=== PATIENT | female | born 1985 | race Two or more races ===

== ENCOUNTER 2017-10-19 08:07 | Day surgery (SDC) | payer OTHER ==
[~2017-10-19 08:07] MED LIST: BUPIVACAINE HCL/PF 0.5% (5MG/ML) 10 ML VIAL IJ ONE
[2017-10-19 08:17] VITALS: BMI 34.6
[2017-10-19] MEDS ORDERED: morphine CARPU-JECT 2 MG/1 ML DISP.SYRIN SQ ONE (09:01)
[2017-10-19] MEDS ORDERED: MORPHINE SULFATE 10 MG/1 ML *VIAL ONE ×2 (09:10→15:01)
--- NOTE | 2017-10-19 09:48 | PDOC ---
History of Present Illness - General Chief Complaint: Pain, Acute Stated Complaint: PAIN, NAUSEA Time Seen by Provider: 10/19/17 08:24 History Source: Patient Exam Limitations: No Limitations - History of Present Illness Travel History: No Initial Comments: 10/19/17 09:35 31-year-old female with no past medical history presents the ED with worsening umbilical pain over the past 24 hours. Patient states awoke yesterday morning at around 7 AM with worsening pain to her umbilical region which she describes a burning sharp pressure. Patient states of the day went on pain continued and has worsened since last night. Patient took no medication for the above and decided come to the ER since she was told she had an umbilical hernia about 4 years ago and after delivering her child in June 2017 the hernia enlarged and has been more tender. Patient was not given surgical consultation referral from her PCP Dr. Zhen Sosa. Patient denies fever, chills, change in bowel pattern, change in urine pattern, or abdominal distention. Patient does complain of mild nausea since this a.m. secondary to discomfort. Timing/Duration: reports: getting worse Quality: reports: moderate, fullness Abdominal Pain Onset Location: reports: periumbilical Pain Radiation: reports: no radiation Activities at Onset: reports: none Aggravating Factors: improves with: Movement Alleviating Factors: improves with: Rest Past History - Travel Traveled outside of the country in the last 30 days: No - Past Medical History Allergies/Adverse Reactions: Allergies Allergy/AdvReac Type Severity Reaction Status Date / Time No Known Allergies Allergy Verified 10/19/17 08:14 Home Medications: Ambulatory Orders Cholecalciferol (Vitamin D3) [Vitamin D -] 400 unit PO ONCE 10/19/17 Asthma: No Cancer: No Cardiac Disorders: No COPD: No Diabetes: No HTN: No Seizures: No Thyroid Disease: No - Immunization History Immunization Up to Date: Yes - Suicide/Smoking/Psychosocial Hx Smoking Status: No Smoking History: Never smoked Have you smoked in the past 12 months: No Number of Cigarettes Smoked Daily: 0 Hx Alcohol Use: No Drug/Substance Use Hx: No Hx Substance Use Treatment: No Patient Lives Alone: No Lives with/in: spouse/SO Review of Systems - Review of Systems Able to Perform ROS?: Yes Constitutional: No: Symptoms Reported HEENTM: No: Symptoms Reported Respiratory: No: Symptoms reported Cardiac (ROS): No: Symptoms Reported ABD/GI: No: Symptoms Reported Integumentary: Yes: Lumps Neurological: No: Symptoms reported Endocrine: No: Symptoms Reported Hematologic/Lymphatic: No: Symptoms Reported *Physical Exam - Vital Signs Last Vital Signs Temp Pulse Resp BP Pulse Ox 97.8 F 93 H 20 119/90 100 10/19/17 08:15 10/19/17 08:15 10/19/17 08:15 10/19/17 08:15 10/19/17 08:15 - Physical Exam General Appearance: Yes: Nourished, Appropriately Dressed. No: Apparent Distress HEENT: positive: Pharynx Normal. negative: Pale Conjunctivae Neck: positive: Supple Respiratory/Chest: positive: Lungs Clear, Normal Breath Sounds. negative: Respiratory Distress, Accessory Muscle Use Cardiovascular: positive: Regular Rhythm, Regular Rate. negative: Murmur Gastrointestinal/Abdominal: positive: Normal Bowel Sounds, Soft, Tenderness ( umbilical), Other (noted nonreducible tender 3cm raisedumbilical hernia without s/s of incarceration. Surrounding skin intact. ). negative: Distended Integumentary: positive: Normal Color, Warm, Moist Neurologic: positive: Motor Strength 5/5 (ambulatory) ED Treatment Course - LABORATORY CBC & Chemistry Diagram: 10/19/17 12:14 10/19/17 12:11 - ADDITIONAL ORDERS Additional order review: Laboratory Results 10/19/17 09:00 Urine HCG, Qual Negative - RADIOLOGY Radiology Studies Ordered: Category Date Time Status SOFT TISSUE ABDOMEN US [US] Stat Ultrasound 10/19/17 09:08 Ordered - Medications Given in the ED: ED Medications Discontinued Medications Generic Name Dose Route Start Last Admin Trade Name Tiffanie PRN Reason Stop Dose Admin Morphine Sulfate 4 mg 10/19/17 09:01 10/19/17 09:14 Morphine Injection - SQ 10/19/17 09:02 4 mg ONCE ONE Administration Medical Decision Making - Medical Decision Making 10/19/17 10:13 Patient here for evaluation of umbilical hernia which she has had for the past 4 years now causing her more discomfort over the past 2 days to the point that she is nauseous and unable to perform certain duties secondary to discomfort. Patient on exam had an non-reducible tenderness 3 cm umbilical hernia. Patient ordered morphine for pain urine and will perform an ultrasound of soft tissue to rule out incarceration. 10/19/17 11:[address] shows small hernia containing small bowel loop. No mention of fluid collection or abscess. Patient will continue with plan of care which includes lab work a lactic acid and abdominal CT with IV contrast. 10/19/17 15:01 Laboratory Tests 10/19/17 10/19/17 10/19/17 12:08 12:11 12:14 WBC 6.5 Hgb 12.6 Hct 39.0 Neutrophils % 57.3 Sodium 141 Potassium 4.3 Chloride 105 Carbon Dioxide 28 Anion Gap 8 BUN 5 L Creatinine 0.5 L Random Glucose 94 Lactic Acid 0.7 Alkaline Phosphatase 124 H 10/19/17 15:[address] shows fat-containing umbilical hernia with inflammatory stranding suggestive of incarceration. No bowel is contained within the hernia sac. Patient ordered for 4 morphine via IV along with consultation to surgery Dr. Carrero. 10/19/17 16:05 Dr. Carrero here for consultation will take patient to the ER within the hour. Microblog sent to hospitalist for admission *DC/Admit/Observation/Transfer Diagnosis at time of Disposition: Umbilical hernia Qualifiers: Obstruction and gangrene presence: with obstruction but without gangrene Qualified Code(s): K42.0 - Umbilical hernia with obstruction, without gangrene - Discharge Dispostion Admit: Yes - Referrals Referrals: Stormy Fontaine [Primary Care Provider] - - Patient Instructions - Post Discharge Activity
[2017-10-19 12:22] LABS: EOS % 2.2 % (0-4.5); HEMOGLOBIN 12.6 GM/dL (10.7-15.3); LYMPH % 31.5 % (8-40); MCH 26.7 pg (25.7-33.7); MCHC 32.4 g/dl (32.0-36.0); MEAN CELL VOLUME 82.4 fl (80-96); MEAN PLT VOLUME 7.4 fl (7.5-11.1); NEUT % 57.3 % (42.8-82.8); PLATELET COUNT 242 K/MM3 (134-434); RBC 4.73 M/mm3 (3.60-5.2); RDW 13.9 % (11.6-15.6); WHITE BLOOD COUNT 6.5 K/mm3 (4.0-10.0)
--- NOTE | 2017-10-19 12:27 | PDOC ---
*Physical Exam - Vital Signs Last Vital Signs Temp Pulse Resp BP Pulse Ox 98.3 F 68 20 100/60 99 10/19/17 11:01 10/19/17 11:01 10/19/17 11:01 10/19/17 11:01 10/19/17 11:01 ED Treatment Course - LABORATORY CBC & Chemistry Diagram: 10/19/17 12:14 10/19/17 12:11 - ADDITIONAL ORDERS Additional order review: Laboratory Results 10/19/17 09:00 Urine HCG, Qual Negative 10/19/17 12:14 RBC 4.73 MCV 82.4 MCHC 32.4 RDW 13.9 D MPV 7.4 L Neutrophils % 57.3 Lymphocytes % 31.5 D Monocytes % 8.0 Eosinophils % 2.2 Basophils % 1.0 - Medications Given in the ED: ED Medications Discontinued Medications Generic Name Dose Route Start Last Admin Trade Name Freq PRN Reason Stop Dose Admin Morphine Sulfate 4 mg 10/19/17 09:01 10/19/17 09:14 Morphine Injection - SQ 10/19/17 09:02 4 mg ONCE ONE Administration Medical Decision Making - Medical Decision Making 10/19/17 12:25 Patient seen and evaluated with the nurse practitioner. I agree with the overall evaluation, assessment, and management with the following summary of visit: 31-year-old female with long-standing history of umbilical hernia now with persistent swelling and intractable pain. Vital signs as noted. Nonreducible umbilical hernia Nonreducible umbilical hernia, rule out obstruction/incarceration versus strain urination. Labs, urinalysis CT of the abdomen and pelvis Pain control Reassess *DC/Admit/Observation/Transfer Diagnosis at time of Disposition: Umbilical hernia Qualifiers: Obstruction and gangrene presence: with obstruction but without gangrene Qualified Code(s): K42.0 - Umbilical hernia with obstruction, without gangrene - Referrals Referrals: Stormy Fontaine [Primary Care Provider] - - Patient Instructions - Post Discharge Activity
[2017-10-19 12:44] LABS: ALBUMIN 3.5 g/dl (3.4-5.0); ANION GAP 8 (8-16); BILIRUBIN,TOTAL 0.4 mg/dL (0.2-1.0); BLOOD UREA NITROGEN 5 mg/dL (7-18); CALCIUM 8.7 mg/dL (8.5-10.1); CHLORIDE 105 mmol/L (98-107); CO2 28 mmol/L (21-32); CREATININE 0.5 mg/dL (0.55-1.02); GLUCOSE,RANDOM 94 mg/dL (74-106); POTASSIUM 4.3 mmol/L (3.5-5.1); SGOT/AST 20 U/L (15-37); SGPT/ALT 39 U/L (12-78); SODIUM 141 mmol/L (136-145); TOT PROT 7.1 g/dl (6.4-8.2)
[2017-10-19 12:45] LABS: ALK PHOS 124 U/L (45-117)
[2017-10-19] MEDS ORDERED: morphine CARPU-JECT 2 MG/1 ML DISP.SYRIN IVPUSH ONE (15:02)
[2017-10-19] MEDS ORDERED: IBUPROFEN 800 MG/8 ML IJ IVPB PRN (16:30)
[2017-10-19] MEDS ORDERED: ONDANSETRON 4 MG/2 ML VIAL IVPUSH PRN ×2 (16:30→19:04)
[2017-10-19] MEDS ORDERED: LACTATED RINGERS SOLUTION 1,000 ML IV SCH (16:30)
[2017-10-19] MEDS ORDERED: MIDAZOLAM HCL 2 MG/2 ML SINGLE DOSE VIAL ONE (16:38)
[2017-10-19] MEDS ORDERED: PROPOFOL 20 ML ONE ×2 (16:39)
[2017-10-19] MEDS ORDERED: SUCCINYLCHOLINE CHLORIDE 200 MG/10 ML VIAL ONE (16:39)
[2017-10-19] MEDS ORDERED: ROCURONIUM BROMIDE 50 MG/5 ML VIAL ONE (16:39)
[2017-10-19] MEDS ORDERED: NEOSTIGMINE METHYLSULFATE 0.5 MG/ML - 10 ML MDV ONE (16:40)
--- NOTE | 2017-10-19 16:46 | HP ---
CHIEF COMPLAINT: PCP: HISTORY OF PRESENT ILLNESS: ER course was notable for: (1) (2) (3) Recent Travel: PAST MEDICAL HISTORY: PAST SURGICAL HISTORY: Social History: Smoking: Alcohol: Drugs: Family History: Allergies No Known Allergies Allergy (Verified 10/19/17 08:14) HOME MEDICATIONS: Home Medications Medication Instructions Recorded Cholecalciferol (Vitamin D3) 400 unit PO ONCE 10/19/17 [Vitamin D -] REVIEW OF SYSTEMS CONSTITUTIONAL: Absent: fever, chills, diaphoresis, generalized weakness, malaise, loss of appetite, weight change HEENT: Absent: rhinorrhea, nasal congestion, throat pain, throat swelling, difficulty swallowing, mouth swelling, ear pain, eye pain, visual changes CARDIOVASCULAR: Absent: chest pain, syncope, palpitations, irregular heart rate, lightheadedness , peripheral edema RESPIRATORY: Absent: cough, shortness of breath, dyspnea with exertion, orthopnea, wheezing, stridor, hemoptysis GASTROINTESTINAL: Absent: abdominal pain, abdominal distension, nausea, vomiting, diarrhea, constipation, melena, hematochezia GENITOURINARY: Absent: dysuria, frequency, urgency, hesitancy, hematuria, flank pain, genital pain MUSCULOSKELETAL: Absent: myalgia, arthralgia, joint swelling, back pain, neck pain SKIN: Absent: rash, itching, pallor HEMATOLOGIC/IMMUNOLOGIC: Absent: easy bleeding, easy bruising, lymphadenopathy, frequent infections ENDOCRINE: Absent: unexplained weight gain, unexplained weight loss, heat intolerance, cold intolerance NEUROLOGIC: Absent: headache, focal weakness or paresthesias, dizziness, unsteady gait, seizure, mental status changes, bladder or bowel incontinence PSYCHIATRIC: Absent: anxiety, depression, suicidal or homicidal ideation, hallucinations. PHYSICAL EXAMINATION Vital Signs - 24 hr 10/19/17 10/19/17 10/19/17 08:15 11:01 15:09 Temperature 97.8 F 98.3 F Pulse Rate 93 H Pulse Rate [ 68 72 Left Radial] Respiratory 20 20 18 Rate Blood Pressure 119/90 Blood Pressure 100/60 114/73 [Right Arm] O2 Sat by Pulse 100 99 100 Oximetry (%) 10/19/17 16:32 Temperature 98.3 F Pulse Rate Pulse Rate [ 70 Left Radial] Respiratory 18 Rate Blood Pressure Blood Pressure 110/60 [Right Arm] O2 Sat by Pulse 99 Oximetry (%) GENERAL: Awake, alert, and fully oriented, in no acute distress. HEAD: Normal with no signs of trauma. EYES: Pupils equal, round and reactive to light, extraocular movements intact, sclera anicteric, conjunctiva clear. No lid lag. EARS, NOSE, THROAT: Ears normal, nares patent, oropharynx clear without exudates. Moist mucous membranes. NECK: Normal range of motion, supple without lymphadenopathy, JVD, or masses. LUNGS: Breath sounds equal, clear to auscultation bilaterally. No wheezes, and no crackles. No accessory muscle use. HEART: Regular rate and rhythm, normal S1 and S2 without murmur, rub or gallop. ABDOMEN: Soft, nontender, not distended, normoactive bowel sounds, no guarding, no rebound, no masses. No hepatomegaly or splenomegaly. MUSCULOSKELETAL: Normal range of motion at all joints. No bony deformities or tenderness. No CVA tenderness. UPPER EXTREMITIES: 2+ pulses, warm, well-perfused. No cyanosis. No clubbing. No peripheral edema. LOWER EXTREMITIES: 2+ pulses, warm, well-perfused. No calf tenderness. No peripheral edema. NEUROLOGICAL: Cranial nerves II-XII intact. Normal speech. Normal gait. PSYCHIATRIC: Cooperative. Good eye contact. Appropriate mood and affect. SKIN: Warm, dry, normal turgor, no rashes or lesions noted, normal capillary refill. Laboratory Results - last 24 hr 10/19/17 10/19/17 10/19/17 09:00 12:08 12:11 WBC RBC Hgb Hct MCV MCH MCHC RDW Plt Count MPV Neutrophils % Lymphocytes % Monocytes % Eosinophils % Basophils % Sodium 141 Potassium 4.3 Chloride 105 Carbon Dioxide 28 Anion Gap 8 BUN 5 L Creatinine 0.5 L Creat Clearance w eGFR > 60 Random Glucose 94 Lactic Acid 0.7 Calcium 8.7 Total Bilirubin 0.4 AST 20 ALT 39 Alkaline Phosphatase 124 H Total Protein 7.1 Albumin 3.5 Urine HCG, Qual Negative 10/19/17 12:14 WBC 6.5 RBC 4.73 Hgb 12.6 Hct 39.0 MCV 82.4 MCH 26.7 MCHC 32.4 RDW 13.9 D Plt Count 242 D MPV 7.4 L Neutrophils % 57.3 Lymphocytes % 31.5 D Monocytes % 8.0 Eosinophils % 2.2 Basophils % 1.0 Sodium Potassium Chloride Carbon Dioxide Anion Gap BUN Creatinine Creat Clearance w eGFR Random Glucose Lactic Acid Calcium Total Bilirubin AST ALT Alkaline Phosphatase Total Protein Albumin Urine HCG, Qual ASSESSMENT/PLAN:
[2017-10-19] MEDS ORDERED: DEXAMETHASONE SOD PHOSPHATE 4 MG/1 ML VIAL ONE (16:48)
[2017-10-19] MEDS ORDERED: LIDOCAINE HCL/PF 2% SDV 5ML VIAL ONE (16:48)
--- NOTE | 2017-10-19 16:54 | CONSULT ---
- Consultation REQUESTING PROVIDER: Gay WAKEFIELD CONSULT REQUEST: We have been asked to surgically evaluate this patient for an incarcerated umbilical hernia PCP:Beatris Vargas HISTORY OF PRESENT ILLNESS:EMELIA who is a 31 y/o female w/a known umbilical hernia who presented w/pain and nausea and vomiting which she had not had before; she has NOC; the hernia is interfering w/ her ADL more now since the pain started; she came to the ER for evaluation. PMHx: none PSHx: C-S Home Medications Medication Instructions Recorded Cholecalciferol (Vitamin D3) 400 unit PO ONCE 10/19/17 [Vitamin D -] Allergies Allergy/AdvReac Type Severity Reaction Status Date / Time No Known Allergies Allergy Verified 10/19/17 08:14 REVIEW OF SYSTEMS: CONSTITUTIONAL: Absent: fever, chills, diaphoresis, generalized weakness, malaise, loss of appetite, weight change CARDIOVASCULAR: Absent: chest pain, syncope, palpitations, irregular heart rate, lightheadedness , peripheral edema RESPIRATORY: Absent: cough, shortness of breath, dyspnea with exertion, wheezing, stridor, hemoptysis GASTROINTESTINAL: Absent: abdominal pain, abdominal distension, nausea, vomiting, diarrhea, constipation, melena, hematochezia GENITOURINARY: Absent: dysuria, frequency, urgency, hesitancy, hematuria, flank pain, genital pain MUSCULOSKELETAL: Absent: myalgia, arthralgia, joint swelling, back pain, neck pain SKIN: Absent: rash, itching, pallor HEMATOLOGIC/IMMUNOLOGIC: Absent: easy bleeding, easy bruising, lymphadenopathy NEUROLOGIC: Absent: headache, focal weakness, paresthesias, dizziness, unsteady gait, seizure, mental status changes, bladder or bowel incontinence PSYCHIATRIC: Absent: anxiety, depression, suicidal or homicidal ideation, hallucinations. PHYSICAL EXAM: GENERAL: Awake, alert, and fully oriented, in no acute distress. HEAD: Normal with no signs of trauma. EYES, sclera anicteric, conjunctiva clear. NECK: Normal ROM, supple without lymphadenopathy, JVD, or masses. ABDOMEN: Soft, tender at umbilicus w/incarcerated umbilical hernia; skin is slightly erythematous, not distended, normoactive bowel sounds, voluntary guarding, no rebound, no other hernias. No organomegaly. MUSCULOSKELETAL: Normal ROM at all joints. No bony deformities or tenderness. No CVA tenderness. UPPER EXTREMITIES: 2+ pulses, warm, well-perfused. No cyanosis. Cap refill <2 seconds. No peripheral edema. LOWER EXTREMITIES: 2+ pulses, warm, well-perfused. No calf tenderness. No peripheral edema. NEUROLOGICAL: Normal speech, gait not observed. PSYCH: Cooperative. Good eye contact. Appropriate mood and affect. SKIN: Warm, dry, normal turgor, no rashes or lesions noted. Vital Signs Temperature 98.3 F 10/19/17 16:32 Pulse Rate 70 10/19/17 16:32 Respiratory Rate 18 10/19/17 16:32 Blood Pressure 110/60 10/19/17 16:32 O2 Sat by Pulse Oximetry (%) 99 10/19/17 16:32 Lab Results WBC 6.5 K/mm3 (4.0-10.0) 10/19/17 12:14 RBC 4.73 M/mm3 (3.60-5.2) 10/19/17 12:14 Hgb 12.6 GM/dL (10.7-15.3) 10/19/17 12:14 Hct 39.0 % (32.4-45.2) 10/19/17 12:14 MCV 82.4 fl (80-96) 10/19/17 12:14 MCHC 32.4 g/dl (32.0-36.0) 10/19/17 12:14 RDW 13.9 % (11.6-15.6) D 10/19/17 12:14 Plt Count 242 K/MM3 (134-434) D 10/19/17 12:14 Sodium 141 mmol/L (136-145) 10/19/17 12:11 Potassium 4.3 mmol/L (3.5-5.1) 10/19/17 12:11 Chloride 105 mmol/L (98-107) 10/19/17 12:11 Carbon Dioxide 28 mmol/L (21-32) 10/19/17 12:11 Anion Gap 8 (8-16) 10/19/17 12:11 BUN 5 mg/dL (7-18) L 10/19/17 12:11 Creatinine 0.5 mg/dL (0.55-1.02) L 10/19/17 12:11 Random Glucose 94 mg/dL (74-106) 10/19/17 12:11 Calcium 8.7 mg/dL (8.5-10.1) 10/19/17 12:11 CT a/p reviewed images and report IMP:incarcerated umbilical hernia PLAN: Repair incarcerated umbilical hernia repair; r/b/t/a's d/w the patient including possible recurrence; informed consent obtained. Miguel Carrero Md FACS Visit type - Case Type Case Type: ED Admission - Emergency Emergency Visit: Yes Care time: The patient presented to the Emergency Department on the above date and was hospitalized for further evaluation of their emergent condition. - New patient This patient is new to me today: Yes Date on this admission: 10/19/17 - Critical Care Critical Care patient: No
[2017-10-19] MEDS ORDERED: BUPIVACAINE HCL/PF 0.5% (5MG/ML) 10 ML VIAL ONE (16:55)
[2017-10-19 17:04] LABS: INR 1.07 (0.82-1.09); PROTHROMBIN TIME (PATIENT) 12.1 SEC (9.98-11.88)
[2017-10-19] MEDS ORDERED: GLYCOPYRROLATE 0.2 MG/1 ML VIAL ONE ×2 (17:24→18:29)
[2017-10-19] MEDS ORDERED: BUPIVACAINE HCL/PF 0.5% (5MG/ML) 10 ML VIAL IJ ONE ×2 (17:45)
[2017-10-19] MEDS: HYDROmorphone HCL CARPU-JECT 2 MG/1 ML DISP.SYRIN IVPUSH PRN ×4 (18:33→19:03)
[2017-10-19] MEDS ORDERED: HYDROmorphone HCL CARPU-JECT 2 MG/1 ML DISP.SYRIN ONE (18:34)
[2017-10-19] MEDS ORDERED: IBUPROFEN 800 MG/8 ML IJ IVPB ONE (18:35)
--- NOTE | 2017-10-19 18:36 | OP ---
Operative Note - Note: Operative Date: 10/19/17 Pre-Operative Diagnosis: incarcerated umbilical hernia Operation: repair incarcerated umbilical hernia Findings: incarcerated viable omentum; 1.5 cm. abdominal wall defect Post-Operative Diagnosis: Same as Pre-op Surgeon: Miguel Carrero Anesthesiologist/WELL TENDER: Kamila Jurado Anesthesia: General Specimens Removed: sac and omentum Estimated Blood Loss (mls): 5
[2017-10-19] MEDS ORDERED: ACETAMINOPHEN 325 MG TABLET (FP) PO PRN (18:42)
[2017-10-19] MEDS ORDERED: oxyCODONE HCL 5 MG TABLET PO PRN (18:42)
[2017-10-19] MEDS: IBUPROFEN 800 MG/8 ML IJ IVPB PRN (18:45)
--- NOTE | 2017-10-19 19:41 | PN ---
Teaching Attending Note Name of Resident: Homar Cordero ATTENDING PHYSICIAN STATEMENT I saw and evaluated the patient. I reviewed the resident's note and discussed the case with the resident. I agree with the resident's findings and plan as documented. SUBJECTIVE: 31 F with no Pmhx who presented with umbilical pain, found to have a incarcerated umbilical hernia for which she was taken to the OR. States she feels ok post-op. Denies any fevers, chills, chest pain or pressure, OBJECTIVE: Physical: VS: Vital Signs Period Temp Pulse Resp BP Sys/Pratt Pulse Ox Last 24 Hr 97.8 F-98.3 F 67-102 16-20 100-119/51-90 99-100 GEN: NAD, resting in bed, AA0X3 HEENT:NCAT, PERRL, throat without erythema or exudates CARD: RRR S1, S2 RESP: CTAB ABD: BSx4, NTD to palpation, Dry gauze in place EXT: -C/C/E CBCD WBC 6.5 K/mm3 (4.0-10.0) 10/19/17 12:14 RBC 4.73 M/mm3 (3.60-5.2) 10/19/17 12:14 Hgb 12.6 GM/dL (10.7-15.3) 10/19/17 12:14 Hct 39.0 % (32.4-45.2) 10/19/17 12:14 MCV 82.4 fl (80-96) 10/19/17 12:14 MCHC 32.4 g/dl (32.0-36.0) 10/19/17 12:14 RDW 13.9 % (11.6-15.6) D 10/19/17 12:14 Plt Count 242 K/MM3 (134-434) D 10/19/17 12:14 MPV 7.4 fl (7.5-11.1) L 10/19/17 12:14 CMP Sodium 141 mmol/L (136-145) 10/19/17 12:11 Potassium 4.3 mmol/L (3.5-5.1) 10/19/17 12:11 Chloride 105 mmol/L (98-107) 10/19/17 12:11 Carbon Dioxide 28 mmol/L (21-32) 10/19/17 12:11 Anion Gap 8 (8-16) 10/19/17 12:11 BUN 5 mg/dL (7-18) L 10/19/17 12:11 Creatinine 0.5 mg/dL (0.55-1.02) L 10/19/17 12:11 Creat Clearance w eGFR > 60 (>60) 10/19/17 12:11 Random Glucose 94 mg/dL (74-106) 10/19/17 12:11 Calcium 8.7 mg/dL (8.5-10.1) 10/19/17 12:11 Total Bilirubin 0.4 mg/dL (0.2-1.0) 10/19/17 12:11 AST 20 U/L (15-37) 10/19/17 12:11 ALT 39 U/L (12-78) 10/19/17 12:11 Alkaline Phosphatase 124 U/L (45-117) H 10/19/17 12:11 Total Protein 7.1 g/dl (6.4-8.2) 10/19/17 12:11 Albumin 3.5 g/dl (3.4-5.0) 10/19/17 12:11 ASSESSMENT AND PLAN: 31 F with no pmhx who presented with umbilical pain, found to have a incarcerated umbilical hernia 1.) Umbilical Hernia Repair- POD #0 - Pain Control - IVF - Incentive Spirometer - Repeat CBC, BMP in am - CLear Liquid Diet - 2.) [facility]
[2017-10-19] MEDS: LACTATED RINGERS SOLUTION 1,000 ML IV SCH (20:00)
--- NOTE | 2017-10-19 20:44 | HP ---
CHIEF COMPLAINT: abdominal pain PCP: Stormy Fontaine HISTORY OF PRESENT ILLNESS: Pt is a 31 y/o F with no significant PMH who presents with abdominal pain. She had a known hernia since 2017. Pt was taken to OR for incarcerated hernia. This history taken post-op. Pt slightly groggy from anesthesia, but easily rousable. Pt complains of mild discomfort at the surgical site. No other complaints. Pt states her pain began today and was accompanied by nausea but no vomiting, no bloody stool. No fever, chills, headache, cough. ER course was notable for: (1) labs unremarkable (2) CT showing hernia (3) Recent Travel: PAST MEDICAL HISTORY: denies PAST SURGICAL HISTORY: denies. Per hospital staff, pt had a recent Social History: Smoking: denies Alcohol: denies Drugs: denies Note that pt denies, but records reveal [facility] visit in the past. Family History: denies Allergies No Known Allergies Allergy (Verified 10/19/17 08:14) HOME MEDICATIONS: Home Medications Medication Instructions Recorded Cholecalciferol (Vitamin D3) 400 unit PO ONCE 10/19/17 [Vitamin D -] REVIEW OF SYSTEMS CONSTITUTIONAL: Absent: fever, chills, diaphoresis, generalized weakness HEENT: Absent: throat pain, difficulty swallowing, mouth swelling CARDIOVASCULAR: Absent: chest pain, lightheadedness RESPIRATORY: Absent: cough, shortness of breath GASTROINTESTINAL: abdominal pain , nausea Absent: , abdominal distension, vomiting, diarrhea, constipation, melena, hematochezia GENITOURINARY: Absent: dysuria, frequency, urgency MUSCULOSKELETAL: Absent: myalgia, arthralgia, joint swelling, back pain, neck pain SKIN: Absent: rash, itching, pallor HEMATOLOGIC/IMMUNOLOGIC: Absent: easy bleeding, easy bruising, lymphadenopathy, frequent infections NEUROLOGIC: Absent: headache, focal weakness or paresthesias, dizziness, unsteady gait, seizure, mental status changes, bladder or bowel incontinence PHYSICAL EXAMINATION Vital Signs - 24 hr 10/19/17 10/19/17 10/19/17 08:15 11:01 15:09 Temperature 97.8 F 98.3 F Pulse Rate 93 H Pulse Rate [ 68 72 Left Radial] Respiratory 20 20 18 Rate Blood Pressure 119/90 Blood Pressure 100/60 114/73 [Right Arm] O2 Sat by Pulse 100 99 100 Oximetry (%) 10/19/17 10/19/17 10/19/17 16:32 18:29 18:45 Temperature 98.3 F 98.3 F Pulse Rate 102 H 79 Pulse Rate [ 70 Left Radial] Respiratory 18 16 18 Rate Blood Pressure 117/62 110/51 Blood Pressure 110/60 [Right Arm] O2 Sat by Pulse 99 100 100 Oximetry (%) 10/19/17 10/19/17 10/19/17 19:00 19:15 19:30 Temperature Pulse Rate 69 67 68 Pulse Rate [ Left Radial] Respiratory 16 16 16 Rate Blood Pressure 105/55 108/54 106/63 Blood Pressure [Right Arm] O2 Sat by Pulse 100 100 100 Oximetry (%) GENERAL: Awake, alert, and fully oriented, in no acute distress. HEAD: Normal with no signs of trauma. EYES: Pupils equal, round and reactive to light, extraocular movements intact, sclera anicteric, conjunctiva clear. No lid lag. EARS, NOSE, THROAT: oropharynx clear without exudates. Moist mucous membranes. NECK: Normal range of motion, supple without lymphadenopathy, JVD, or masses. LUNGS: Breath sounds equal, clear to auscultation bilaterally. No wheezes, and no crackles. No accessory muscle use. HEART: Regular rate and rhythm, normal S1 and S2 without murmur, rub or gallop. ABDOMEN: Soft, tender at the surgical site and epigastrium with palpation, not distended, normoactive bowel sounds, no guarding, no rebound, no masses. No hepatomegaly or splenomegaly. MUSCULOSKELETAL: Normal range of motion at all joints. No bony deformities or tenderness. No CVA tenderness. UPPER EXTREMITIES: 2+ pulses, warm, well-perfused. No cyanosis. No clubbing. No peripheral edema. LOWER EXTREMITIES: 2+ pulses, warm, well-perfused. No calf tenderness. No peripheral edema. NEUROLOGICAL: Cranial nerves II-XII intact. Normal speech. Normal gait. PSYCHIATRIC: Cooperative. Good eye contact. Appropriate mood and affect. SKIN: Warm, dry, normal turgor, no rashes or lesions noted, normal capillary refill. Laboratory Results - last 24 hr 10/19/17 10/19/17 10/19/17 09:00 12:08 12:11 WBC RBC Hgb Hct MCV MCH MCHC RDW Plt Count MPV Neutrophils % Lymphocytes % Monocytes % Eosinophils % Basophils % PT with INR INR Sodium 141 Potassium 4.3 Chloride 105 Carbon Dioxide 28 Anion Gap 8 BUN 5 L Creatinine 0.5 L Creat Clearance w eGFR > 60 Random Glucose 94 Lactic Acid 0.7 Calcium 8.7 Total Bilirubin 0.4 AST 20 ALT 39 Alkaline Phosphatase 124 H Total Protein 7.1 Albumin 3.5 Urine HCG, Qual Negative Blood Type Antibody Screen 10/19/17 10/19/17 10/19/17 12:14 16:25 16:25 WBC 6.5 RBC 4.73 Hgb 12.6 Hct 39.0 MCV 82.4 MCH 26.7 MCHC 32.4 RDW 13.9 D Plt Count 242 D MPV 7.4 L Neutrophils % 57.3 Lymphocytes % 31.5 D Monocytes % 8.0 Eosinophils % 2.2 Basophils % 1.0 PT with INR 12.10 H INR 1.07 Sodium Potassium Chloride Carbon Dioxide Anion Gap BUN Creatinine Creat Clearance w eGFR Random Glucose Lactic Acid Calcium Total Bilirubin AST ALT Alkaline Phosphatase Total Protein Albumin Urine HCG, Qual Blood Type O POSITIVE Antibody Screen Negative ASSESSMENT/PLAN: Pt is a 31 y/o F POD 0 of open surgical repair of incarcerated umbilical hernia. #POD 0 surgical repair -pain control. Oxycodone, Ibuprofen, Tylenol -IVF -incentive spirometer #FEN -LR -lytes wnl -clear liquid diet #PPx -SCDs -Hep SubQ #Dispo -Admit to Med/Surg Billy Falcon MD PGY-1 IM Visit type - Emergency Visit Emergency Visit: Yes Care time: The patient presented to the Emergency Department on the above date and was hospitalized for further evaluation of their emergent condition. - New Patient This patient is new to me today: Yes Date on this admission: 10/19/17 - Critical Care Critical Care patient: No
[2017-10-19] MEDS: HEPARIN NA (PORCINE) 5,000 UNITS/ML 1ML VIAL SQ SCH (21:37)
[2017-10-19] MEDS: oxyCODONE HCL 5 MG TABLET PO PRN (21:38)
[2017-10-19] MEDS: ACETAMINOPHEN 325 MG TABLET (FP) PO PRN (21:39)
[2017-10-19] MEDS ORDERED: HEPARIN NA (PORCINE) 5,000 UNITS/ML 1ML VIAL SQ SCH (22:00)
[2017-10-20] MEDS ORDERED: IBUPROFEN 800 MG/8 ML IJ IVPB ONE (01:06)
[2017-10-20 01:43] VITALS: TEMP 98.3
[2017-10-20] MEDS: HEPARIN NA (PORCINE) 5,000 UNITS/ML 1ML VIAL SQ SCH (05:49)
[2017-10-20] MEDS: ACETAMINOPHEN 325 MG TABLET (FP) PO PRN ×2 (05:51→13:02)
[2017-10-20] MEDS: oxyCODONE HCL 5 MG TABLET PO PRN ×2 (05:51→13:03)
[2017-10-20] MEDS: LACTATED RINGERS SOLUTION 1,000 ML IV SCH (05:52)
--- NOTE | 2017-10-20 07:39 | PN ---
Physical Exam: SUBJECTIVE: Patient seen and examined OBJECTIVE: Vital Signs Period Temp Pulse Resp BP Sys/Pratt Pulse Ox Last 24 Hr 97.8 F-98.5 F 67-102 16-20 100-119/51-90 98-100 GENERAL: The patient is awake, alert, and fully oriented, in no acute distress. HEAD: Normal with no signs of trauma. EYES: PERRL, extraocular movements intact, sclera anicteric, conjunctiva clear. No ptosis. ENT: Ears normal, nares patent, oropharynx clear without exudates, moist mucous membranes. NECK: Trachea midline, full range of motion, supple. LUNGS: Breath sounds equal, clear to auscultation bilaterally, no wheezes, no crackles, no accessory muscle use. HEART: Regular rate and rhythm, S1, S2 without murmur, rub or gallop. ABDOMEN: Soft, nontender, nondistended, normoactive bowel sounds, no guarding, no rebound, no hepatosplenomegaly, no masses. EXTREMITIES: 2+ pulses, warm, well-perfused, no edema. NEUROLOGICAL: Cranial nerves II through XII grossly intact. Normal speech, gait not observed. PSYCH: Normal mood, normal affect. SKIN: Warm, dry, normal turgor, no rashes or lesions noted Laboratory Results - last 24 hr 10/19/17 10/19/17 10/19/17 09:00 12:08 12:11 WBC RBC Hgb Hct MCV MCH MCHC RDW Plt Count MPV Neutrophils % Lymphocytes % Monocytes % Eosinophils % Basophils % PT with INR INR Sodium 141 Potassium 4.3 Chloride 105 Carbon Dioxide 28 Anion Gap 8 BUN 5 L Creatinine 0.5 L Creat Clearance w eGFR > 60 Random Glucose 94 Lactic Acid 0.7 Calcium 8.7 Total Bilirubin 0.4 AST 20 ALT 39 Alkaline Phosphatase 124 H Total Protein 7.1 Albumin 3.5 Urine HCG, Qual Negative Blood Type Antibody Screen 10/19/17 10/19/17 10/19/17 12:14 16:25 16:25 WBC 6.5 RBC 4.73 Hgb 12.6 Hct 39.0 MCV 82.4 MCH 26.7 MCHC 32.4 RDW 13.9 D Plt Count 242 D MPV 7.4 L Neutrophils % 57.3 Lymphocytes % 31.5 D Monocytes % 8.0 Eosinophils % 2.2 Basophils % 1.0 PT with INR 12.10 H INR 1.07 Sodium Potassium Chloride Carbon Dioxide Anion Gap BUN Creatinine Creat Clearance w eGFR Random Glucose Lactic Acid Calcium Total Bilirubin AST ALT Alkaline Phosphatase Total Protein Albumin Urine HCG, Qual Blood Type O POSITIVE Antibody Screen Negative Active Medications Generic Name Dose Route Start Last Admin Trade Name Freq PRN Reason Stop Dose Admin Acetaminophen 325 mg 10/19/17 19:04 10/20/17 05:51 Tylenol - PO 325 mg Q6H PRN Administration PAIN LEVEL 6-10 Heparin Sodium (Porcine) 5,000 unit 10/19/17 22:00 10/20/17 05:49 Heparin - SQ 5,000 unit TID RHIANNON Administration Lactated Ringer's 1,000 mls @ 125 mls/hr 10/19/17 19:04 10/20/17 05:52 Lactated Ringers Solution IV 125 mls/hr ASDIR RHIANNON Administration Ibuprofen 800 mg 10/19/17 19:04 10/19/17 18:45 Caldolor Injection - IVPB 800 mg Q6H PRN Administration Pain - Pacu Ondansetron HCl 4 mg 10/19/17 19:04 Zofran Injection IVPUSH Q6H PRN NAUSEA AND/OR VOMITING Oxycodone HCl 5 mg 10/19/17 19:04 10/20/17 05:51 Roxicodone - PO 5 mg Q6H PRN Administration PAIN LEVEL 6-10 ASSESSMENT/PLAN:
[2017-10-20] MEDS: IBUPROFEN 800 MG/8 ML IJ IVPB PRN (08:30)
--- NOTE | 2017-10-20 08:47 | PN ---
Progress Note (short form) - Note Progress Note: POD #1 Alert. Resting in position of comfort. Hasn't been oob since surgery. Starting clear liquid diet. C/o incisional tenderness. Adequate pain control via prn narcotic and non-carcotic (IV & PO). Denies n/v/f/c, CP or SOB. Last Vital Signs Temp Pulse Resp BP Pulse Ox 98.3 F 85 20 115/62 98 10/20/17 06:00 10/20/17 06:00 10/20/17 06:00 18 06:00 10/20/17 04:00 CBC, BMP /02/28 12:14 10/19/17 12:11 Gen: nad Abd: dressing c/d/i. Problem List - Problems (1) Umbilical hernia Assessment/Plan: POD #1 s/p repair incarcerated umbilical hernia Advance diet as tolerated. OOB and ambulate Percocet 5-325 escribed f/u w/ Dr. Carrero for post-op visit Clear for discharge from surgery standpoint No further surgical intervention. On behalf of Dr. Carrero, thank you for the opportunity to participate in your patient's care. Code(s): K42.9 - UMBILICAL HERNIA WITHOUT OBSTRUCTION OR GANGRENE Qualifiers: Obstruction and gangrene presence: with obstruction but without gangrene Qualified Code(s): K42.0 - Umbilical hernia with obstruction, without gangrene
--- NOTE | 2017-10-20 11:16 | PN ---
Progress Note (short form) - Note Progress Note: POD #1 - s/p incarcerated umbilical hernia repair. VSS. Pt. doing well, resting comfortably in bed. No complaints. No apparent anesthetic complications noted. Continue current care.
[2017-10-20 12:36] VITALS: BP 99/54; PULSE 89
--- NOTE | 2017-10-20 15:29 | DS ---
Physical Exam: SUBJECTIVE: Patient seen and examined at bedside. no acute events over night. denies any fever, chills, cp, sob. tolerating pain well. passes flatus. OBJECTIVE: Vital Signs Period Temp Pulse Resp BP Sys/Pratt Pulse Ox Last 24 Hr 98.1 F-98.5 F 67-102 16-20 99-117/51-76 98-100 PHYSICAL EXAM GENERAL: The patient is awake, alert, and fully oriented, in no acute distress. HEAD: Normal with no signs of trauma. EYES: PERRLA,EOMI, sclera anicteric, conjunctiva clear. ENT: moist mucous membranes. NECK: Trachea midline, full range of motion, supple. LUNGS: CTA B/L , no wheezes, no crackles, no accessory muscle use. HEART:RRR, S1, S2 without murmur, rub or gallop. ABDOMEN: Soft,obese surgery sight tenderness, distended, normoactive bowel sounds, no guarding, surgey sight clean with no drainage. EXTREMITIES: 2+ pulses, warm, well-perfused, no edema. NEUROLOGICAL: Cranial nerves II through XII grossly intact. Normal speech, gait not observed. PSYCH: Normal mood, normal affect. SKIN: Warm, dry, normal turgor, LABS Laboratory Results - last 24 hr 10/19/17 10/19/17 16:25 16:25 PT with INR 12.10 H INR 1.07 Blood Type O POSITIVE Antibody Screen Negative HOSPITAL COURSE: Date of Admission:10/19/17 Date of Discharge: 10/20/17 is a 31 F with no pmhx who presented with umbilical pain, found to have a incarcerated umbilical hernia, repaired surgically by . POD #1 , s/p incarcerated umbilical hernia repair. VSS. Pt. doing well, resting comfortably in bed with no complaints. No apparent anesthetic complications noted.pt is hemodynamically stable and will be send home with clear liquid diet for 2 days and then advance as tolerated. she is passing flatus and tolerating pain will , she will be send home with perocet 5-325 for pain as needed and follow up with surgeon within one week. Minutes to complete discharge: 40 Discharge Summary Reason For Visit: IRREDUCIBLE UMBILICAL HERNIA Condition: Stable - Instructions Diet, Activity, Other Instructions: Dr. Carrero Discharge Instructions Dear SHELBI, Post Operative Instructions Physical activity Resume your normal everyday activity as tolerated no heavy lifting or exercise until seen by your surgeon. You may walk unlimited amounts of and climb stairs. You may resume driving the car when you feel safe and comfortable behind the wheel. Wound care If you have a bandage, leave it on, and keep dry for 48 - 72 hours. After that time discard the outer bandage. If there are tapes on the skin under the outer bandage, leave them in place. They will peel off in the next 7 to 10 days. Do Not peel them off. You may shower 2 days after surgery. If there are tapes present on the skin, they can get wet. Diet There are no dietary restrictions. Eat healthy, high-fiber foods. Drink 6 to 8 glasses of liquid each day. This will assist in keeping your bowels are regular. Pain management You may take Tylenol or acetaminophen or Ibuprofen (for example, Motrin, Advil etc.) Any pain prescription medication ordered should be taken as prescribed for moderate to severe pain. Call Dr. Carrero for any of the following: Severe pain not relieved by medication Fever of 101 or higher Excessive bleeding or drainage on dressing Inability to urinate Call the office at [phone] for a post operative appointment in 7 - 10 days. Follow up with your primary care physician within one week If your symptoms worsen or you developed untolerable pain call the surgeon or call 911 and come back to emergency room [facility]. Referrals: Miguel Carrero MD [Staff Physician] - 1 Week Stormy Fontaine [Primary Care Provider] - 1 Week Disposition: HOME - Home Medications Comprehensive Discharge Medication List: Ambulatory Orders Cholecalciferol (Vitamin D3) [Vitamin D -] 400 unit PO ONCE 10/19/17 Oxycodone HCl/Acetaminophen [Percocet 5-325 mg Tablet] 1 tab PO Q4H PRN #20 tablet MDD 6 10/20/17 This patient is new to me today: Yes Date on this admission: 10/20/17 Emergency Visit: Yes Care time: The patient presented to the Emergency Department on the above date and was hospitalized for further evaluation of their emergent condition. Critical Care patient: No - Discharge Referral Referred to [facility] No
--- NOTE | 2017-10-20 20:10 | PN ---
Teaching Attending Note Name of Resident: Jeramy Queen ATTENDING PHYSICIAN STATEMENT I saw and evaluated the patient. I reviewed the resident's note and discussed the case with the resident. I agree with the resident's findings and plan as documented. SUBJECTIVE: No fever or chills . minimal abd pain. no N/V OBJECTIVE: NAd Cv: RRR Lung s: CTAB ext: no edema abd: soft, ND, minimal TTP around mid line surgical wound ( with surgical dressing ) . NL BS ASSESSMENT AND PLAN: 31 y/o lady with no sig PMH who rpesneted with Abd pain, was found to have incarcerated hernia . now s/p repair POD 1 did well , tolerated clears. dc home clears x 2 days then advance as tolerated instructed on calling Sx for any N/V/fever/distension /and no BM x 2 days
--- NOTE | 2017-10-21 11:08 | OP ---
DATE OF OPERATION: 10/19/2017 PREOPERATIVE DIAGNOSIS: Incarcerated umbilical hernia. POSTOPERATIVE DIAGNOSIS: Incarcerated umbilical hernia. PROCEDURE: Repair of incarcerated umbilical hernia. SURGEON: Miguel Carrero MD ANESTHESIA: General. OPERATIVE FINDINGS: There was incarcerated but viable omentum in an umbilical hernia with a defect at the abdominal wall of 1.5 cm in greatest dimension, and the rest of the findings were unremarkable. DESCRIPTION OF PROCEDURE: The patient was placed on the operating table in supine position, and after the induction of general anesthesia, the patient's abdomen was prepped with ChloraPrep and draped in sterile fashion. A timeout was taken, and then, an infraumbilical skin incision was made from the 3 to 9 o'clock position using a scalpel. This was taken down through skin and subcutaneous tissue to the abdominal wall. The umbilical stalk was then bluntly encircled, and the umbilicus dissected off the sac, which it was in continuity with. The sac was entered, and redundant sac was excised using electrocautery. Adherent omentum to the sac was taken down with electrocautery as well. Redundant omentum that could not be reduced through the defect was excised as well and sent for pathological examination. The remaining portion of omentum incarcerated at the level of the abdominal wall was reduced after the defect was enlarged using electrocautery. The defect was then repaired with multiple 0 Prolene horizontal mattress sutures. Hemostasis was checked for and noted to be good, and the operative field was infiltrated with 0.50% Marcaine and 1% xylocaine in equal concentration. The wound was irrigated, hemostasis verified again, and then, the umbilicus tacked down to the abdominal wall with interrupted 2-0 Vicryl. The deep dermis was reapproximated with interrupted 3-0 Vicryl and the skin edges with 4-0 Monocryl in a subcuticular continuous fashion. Steri-Strips, fluffs, and Tegaderm dressing were placed and the procedure terminated at this point, and the patient aroused from general anesthesia and transferred to the postanesthesia care unit in stable condition, awake and alert. ESTIMATED BLOOD LOSS: 5 mL REPLACEMENTS: Crystalloid. DRAINS: None. SPECIMENS: Hernia sac and omentum to Pathology. I, Miguel Carrero MD, was physically present in the operating room from the time the patient was placed on the operating table until she was transferred to the postanesthesia care unit in my accompaniment. MD RACH Ellsworth/[id number]
--- NOTE | 2017-10-21 12:31 | PATH ---
Surgical Pathology Report Patient Name: SHELBI RODRIGUEZ [facility]. Rec. #: [id number] /Age/Gender: 1985 (Age: 31) / F Account: [id number] Location: AMBULATORY SURG Taken: 10/19/2017 Received: 10/20/2017 Reported: 10/21/2017 Physicians: Miguel Carrero MD Specimen(s) Received HERNIA SAC AND OMENTUM Clinical History Irreducible umbilical hernia Final Diagnosis OMENTUM AND HERNIA SAC, HERNIORRHAPHY: FIBROMEMBRANOUS AND ADIPOSE TISSUE CONSISTENT WITH HERNIA SAC AND CONTENTS. Electronically Signed Katlyn Noble M.D. Gross Description Received in formalin labeled "omentum and hernia sac," is a 10.0 x 8.0 x 1.2 cm aggregate of bailey-aguilar portions of fibromembranous tissue with attached fat. Youth Program Director sections are submitted in one cassette. /10/20/201710/20/2017
== END 2017-10-20 14:55 | disposition home or self-care (01) ==
LOC: JER 08:07 → JASUSAT 16:05 → SUATTDRO 16:05 → J6S 20:24 → JASUSAT 10-20 14:55
PROVIDERS: ATTEND Internal Medicine
PROC: 0WQF0ZZ Repair Abdominal Wall, Open Approach (ICD-10-PCS; principal; 2017-10-19 17:00)
DX: K42.9 Umbilical hernia without obstruction or gangrene (principal)
CPT/HCPCS: 36415; 74177-TC; 76705; 80053; 83605; 84703; 85025; 85610; 86850; 86900; 86901; 88302-TC; 94760; 99285-25; J1644

== ENCOUNTER 2024-10-30 18:46 | Emergency (ER) | payer SELFPAY ==
[2024-10-30 18:58] VITALS: BP 117/63; PULSE 86; RESP 18; TEMP 98.4; BMI 37.5
== END 2024-10-30 20:43 | disposition home or self-care (01) ==
LOC: JERFT 18:46
DX: H66.92 Otitis media, unspecified, left ear (principal); H92.02 Otalgia, left ear
CPT/HCPCS: 99283-25